=== PATIENT | male | born 1925 | race Caucasian/White ===

== ENCOUNTER 2017-05-16 16:28 | Emergency (ER) | payer OTHER, BC ==
[2017-05-16 16:47] VITALS: BMI 22.3
[2017-05-16] MEDS ORDERED: traMADol HCL 50 MG TABLET PO ONE (17:56)
--- NOTE | 2017-05-16 18:02 | PDOC ---
History of Present Illness <Dimple Soares - Last Filed: 05/16/17 19:55> - General History Source: Patient, EMS Exam Limitations: No Limitations - History of Present Illness Initial Comments: 05/16/17 17:57 High functioning and relatively healthy 89-year-old male with history of hypertension and BPH not on blood thinners presents brought in by EMS after mechanical fall with right arm injury. Patient was ambulating, did not see a glass door and accidentally walked into it, causing him to fall backward and landing on his right shoulder, also striking the back of his head. There was no loss of consciousness, he was helped to his feet by EMS and was able to ambulate , but presents now complaining of right shoulder pain and inability to range. No numbness, no headache or vision change or speech change, no nausea/vomiting, no rib pain or difficulty breathing. No lightheadedness or syncope, no recent infectious or dehydration complaints. <ChaloroxaneStanley berumenNaeem - Last Filed: 05/16/17 20:11> - General Chief Complaint: Injury Stated Complaint: RIGHT SHOULDER PAIN Time Seen by Provider: 05/16/17 17:02 Past History <Dimple Soares - Last Filed: 05/16/17 19:55> - Past Medical History COPD: No HTN: Yes Other medical history: ENLARGED PROSTATE. - Suicide/Smoking/Psychosocial Hx Smoking History: Never smoked Hx Alcohol Use: No Drug/Substance Use Hx: No Substance Use Type: None <ChaloroxaneStanley berumenNaeem - Last Filed: 05/16/17 20:11> - Past Medical History Allergies/Adverse Reactions: Allergies Allergy/AdvReac Type Severity Reaction Status Date / Time No Known Allergies Allergy Verified 05/16/17 16:44 Home Medications: Ambulatory Orders Hydrochlorothiazide 25 mg PO DAILY 05/16/17 Lisinopril 20 mg PO DAILY 05/16/17 Tamsulosin HCl 0.4 mg PO DAILY 05/16/17 Tramadol HCl [Ultram] 50 mg PO TID PRN #14 tablet MDD 3 tabs 05/16/17 Review of Systems - Review of Systems Constitutional: No: Chills, Fever HEENTM: No: Recent change in vision Respiratory: No: Cough, Shortness of Breath Cardiac (ROS): No: Chest Pain, Palpitations, Syncope ABD/GI: No: Nausea, Vomiting Musculoskeletal: Yes: Joint Pain Integumentary: No: Bruising Neurological: No: Headache All Other Systems: Reviewed and Negative <Naeem Barr - Last Filed: 05/16/17 20:11> *Physical Exam - Vital Signs Last Vital Signs Temp Pulse Resp BP Pulse Ox 98.5 F 54 L 18 209/84 98 05/16/17 19:47 05/16/17 19:47 05/16/17 19:47 05/16/17 19:47 05/16/17 19:47 <Dimple Soares - Last Filed: 05/16/17 19:55> - Vital Signs Last Vital Signs Temp Pulse Resp BP Pulse Ox 98.3 F 42 L 18 205/96 100 05/16/17 16:42 05/16/17 16:42 05/16/17 16:42 05/16/17 16:42 05/16/17 16:42 - Physical Exam Comments: 05/16/17 17:59 Vital signs stable, heart rate 50s. General: Patient is alert and in no acute distress. Speech is clear and appropriate. Head: Atraumatic and nontender. HEENT: Pupils are equal round and reactive to light, extraocular movements are intact. No facial deformity/tenderness, no septal hematoma. The oropharynx is clear. Neck: The trachea is midline, there is no stridor. There is no midline cervical spine tenderness, full range of motion of neck. Chest: Nontender, no ecchymosis or abrasions. Heart: S1-S2, regular slight bradycardia. No murmurs. Lungs: Clear to auscultation bilaterally. Symmetric chest rise. Abdomen: Soft/nontender/nondistended. Bowel sounds are normal. There is no abdominal or flank ecchymosis. Back/Pelvis: There is no midline spine tenderness or step-off. Pelvis is stable and nontender. Extremities: Proximal R arm swelling without bruising or laceration, +ttp. sensory intact over deltoid, FROM elbow/wrist/digits. 2+ distal pulses with brisk cap refill. No other extremity deformity or joint swelling. No other focal bony tenderness throughout. 2+ distal pulses throughout. Neuro: Alert and oriented x3. Cranial nerves II through XII are intact. 5 out of 5 motor strength x4 extremities, R shoulder limited 2/2 injury. Finger-nose- finger is intact. No pronator drift. Gait is stable. Skin: No abrasions/hematomas/lacerations. Psych: Affect is appropriate. <Naeem Barr - Last Filed: 05/16/17 20:11> ED Treatment Course - RADIOLOGY Radiology Studies Ordered: 05/16/17 19:[address] as reviewed by Dr. Gonzales reports normal CT with mild age related atrophy. - Medications Given in the ED: ED Medications Discontinued Medications Generic Name Dose Route Start Last Admin Trade Name Markosq PRN Reason Stop Dose Admin Lisinopril 20 mg 05/16/17 19:48 05/16/17 19:54 Prinivil PO 05/16/17 19:49 20 mg ONCE ONE Administration Tramadol HCl 50 mg 05/16/17 17:56 05/16/17 18:38 Ultram - PO 05/16/17 17:57 50 mg ONCE ONE Administration <Dimple Soares - Last Filed: 05/16/17 19:55> - RADIOLOGY Radiology Studies Ordered: Category Date Time Status HEAD CT WITHOUT CONTRAST [CT] Stat CT Scan 05/16/17 17:56 Ordered <Naeem Barr - Last Filed: 05/16/17 20:11> Medical Decision Making - Medical Decision Making 05/16/17 18:01 89-year-old male with mechanical fall onto right arm with right shoulder injury , likely fracture, rule out dislocation. Minor head injury and not on blood thinners, neurologically intact. No other injuries, vital signs normal but bradycardic. On my preliminary review of right shoulder x-ray, there is an impacted proximal right humeral fracture without evidence of dislocation. Apply swelling, pain control, remains neurovascularly intact. CT head Check EKG given the bradycardia If above is within normal limits can be discharged home, has orthopedics follow- up near his house with an upper extremity specialist 05/16/17 19:38 CT head without acute pathology. Sling in place and neurologically intact, ambulating comfortably independently. Agrees with discharge plan, has his own orthopedic, understands return criteria. Friend at bedside will accompany home. 05/16/17 20:10 wants d/c despite elevated BP, states he has "white coat" high bp, no end organ sxs. additional dose of lisinopril given, strict return precautions, friend at bedside. HR improved at 60. <Naeem Barr - Last Filed: 05/16/17 20:11> *DC/Admit/Observation/Transfer <Dimple Soares - Last Filed: 05/16/17 19:55> <Naeem Barr - Last Filed: 05/16/17 20:11> Diagnosis at time of Disposition: Right humeral fracture Qualifiers: Encounter type: initial encounter Humerus Location: proximal Fracture type: closed Fracture morphology: unspecified fracture morphology Qualified Code(s): S42.201A - Unspecified fracture of upper end of right humerus, initial encounter for closed fracture - Discharge Dispostion Disposition: HOME Condition at time of disposition: Stable - Prescriptions Prescriptions: Tramadol HCl [Ultram] 50 mg PO TID PRN #14 tablet MDD 3 tabs PRN Reason: Pain Level 6-10 - Referrals Referrals: Mike Becerril [Primary Care Provider] - - Patient Instructions Printed Discharge Instructions: How to Use a Sling, DI for Humeral Fracture Additional Instructions: Activity as tolerated, maintain sling until cleared by orthopedics. Stay hydrated. An x-ray shows a break in the humerus bone of your upper arm. Take Tylenol every 8 hours as needed for mild pain, take tramadol as prescribed as needed for severe pain. Tramadol can make you lightheaded, so take proper precautions. Continue your medications as previously prescribed by your physician. You were given an extra dose of your blood pressure medications in the ER. You should follow up with Dr. Becerril as soon as possible regarding today's emergency department visit. You also need to see your orthopedic doctor within the next few days. Return to the emergency department for any new or concerning symptoms, particularly intolerable pain, severe swelling or discoloration, numbness, persistently elevated blood pressure or focal weakness. - Post Discharge Activity
[2017-05-16] MEDS ORDERED: traMADol HCL 50 MG TABLET ONE (18:34)
[2017-05-16 19:48] VITALS: BP 209/84; PULSE 54; TEMP 98.5
[2017-05-16] MEDS ORDERED: LISINOPRIL 20 MG TABLET (FP) PO ONE (19:48)
[2017-05-16] MEDS ORDERED: LISINOPRIL 20 MG TABLET (FP) ONE (19:51)
== END 2017-05-16 20:37 | disposition home or self-care (01) ==
LOC: JER 16:28
DX: S42.201A Unspecified fracture of upper end of right humerus, initial encounter for closed fracture (principal); W01.198A Fall on same level from slipping, tripping and stumbling with subsequent striking against other object, initial encounter; Y93.01 Activity, walking, marching and hiking; Y92.89 Other specified places as the place of occurrence of the external cause; Y99.8 Other external cause status; I10 Essential (primary) hypertension; N40.0 Benign prostatic hyperplasia without lower urinary tract symptoms
CPT/HCPCS: 70450-TC; 73030-TC-RT; 99282-25